=== PATIENT | female | born 1980 | race African-American/Black ===

== ENCOUNTER 2017-10-24 12:39 | Emergency (ER) | payer OTHER | END 2017-10-24 13:29 | disposition left against medical advice (07) | LOC: ERS 12:39 | DX: Z53.21 Procedure and treatment not carried out due to patient leaving prior to being seen by health care provider (principal) ==

== ENCOUNTER 2017-11-06 19:45 | Emergency (ER) | payer OTHER ==
[2017-11-06] MEDS ORDERED: traMADol HCl 50 MG TAB ONE (21:57)
--- NOTE | 2017-11-06 22:03 | RAD ---
FOUR VIEWS RIGHT KNEE 11/06/17 HISTORY: Right knee pain for three weeks. FINDINGS: There is no evidence of a fracture, dislocation, or other osseous abnormality involving the right kne e. IMPRESSION: No acute osseous abnormality. POS: JOSE
== END 2017-11-06 22:03 | disposition home or self-care (01) ==
LOC: ERS 19:45
DX: S83.91XA Sprain of unspecified site of right knee, initial encounter (principal); D57.1 Sickle-cell disease without crisis; F32.9 Major depressive disorder, single episode, unspecified; Z79.899 Other long term (current) drug therapy; X50.0XXA Overexertion from strenuous movement or load, initial encounter; Y93.39 Activity, other involving climbing, rappelling and jumping off

== ENCOUNTER 2018-02-14 05:44 | Emergency (ER) | payer OTHER ==
[2018-02-14] MEDS ORDERED: Acetaminophen 325 MG TAB ONE (06:40)
[2018-02-14 06:58] LABS: #Eosinphils 0.1 thou/uL (0.0-0.7); #Lymphocytes 1.3 thou/uL (1.20-3.40); #Monocytes 0.3 thou/uL (0.11-0.59); #Neutrophils 1.9 thou/uL (1.40-6.50); %Basophils 1.2 % (0.0-1.0); %Eosinophils 2.6 % (0.0-10.0); %Lymphocytes 36.2 % (21.0-51.0); %Monocytes 6.9 % (0.0-10.0); %Neutrophils 53.1 % (42.0-75.0); Hemoglobin 12.2 g/dL (12.0-16.0); Mean Corpuscular HGB CONC 34.1 g/dL (32.0-36.0); Mean Corpuscular Hemoglobin 30.5 pg (27.0-31.0); Mean Corpuscular Volume 89.4 fl (81.0-99.0); Mean Platelet Volume 7.4 fL (7.4-10.4); Platelet Count 258 thou/uL (130-400); RBC Distribution Width 12.2 % (11.5-14.5); Red Blood Cell (RBC) Count 4.01 mill/uL (4.20-5.40); White Blood Cell (WBC) Count 3.6 thou/uL (4.8-10.8)
[2018-02-14 07:15] LABS: ALT (SGPT) Less than 7 U/L (8-55); AST (SGOT) 12 U/L (5-34); Albumin 3.6 g/dL (3.5-5.0); Alkaline Phosphatase 44 U/L (40-150); Anion Gap 9 mmol/L (10-20); BUN (Urea Nitrogen) 7 mg/dL (7.0-18.7); Bilirubin, Total 0.7 mg/dL (0.2-1.2); Calc. Creatinine Clearance 0 mL/min (70-130); Calcium 8.8 mg/dL (7.8-10.44); Carbon Dioxide 25 mmol/L (22-29); Chloride 106 mmol/L (98-107); Estimated GFR-MDRD Greater than 90; Globulin 3.3 g/dL (2.4-3.5); Glucose 94 mg/dL (70-105); Potassium 3.9 mmol/L (3.5-5.1); Protein, Total 6.9 g/dL (6.0-8.3); Sodium 136 mmol/L (136-145)
[2018-02-14 07:38] LABS: Bilirubin Negative (Negative); Blood, Urine Negative (Negative); Clarity CLOUDY (Clear); Glucose, Urine (Dipstick) Negative (Negative); Leukocyte Moderate (Negative); Nitrite Negative (Negative); Protein, Urine (Dipstick) Negative (Neg-Trace); Specific Gravity, Urine 1.016 (1.002-1.036)
[2018-02-14 07:40] LABS: Hyaline Casts/LPF 0-3 HYALINE CAST LPF (0-3 Hyaline); Pathc Cast-AUWi Flag 0.14 (0-2.49); WBC/HPF 21-50 HPF (0-3)
[2018-02-14 07:45] LABS: Pregnancy Test - Urine (BHCG) Negative (Negative); Pregu Control Background? CLEAR/WHITE (CLR/WHITE); Pregu Control Bar Appear? YES (CONTROL BAR); Specific Gravity 1.016 (1.002-1.036)
--- NOTE | 2018-02-14 08:00 | ULT ---
SONOGRAM VENOUS DUPLEX RIGHT UPPER EXTREMITY: HISTORY: Right arm pain and edema. FINDINGS: The right internal jugular and subclavian veins were evaluated along with the axillary, brachial, cep halic, and basilic veins. Good color and spectral Doppler flow. IMPRESSION: No sonographic evidence of deep vein thrombosis right upper extremity. POS: YESENIA
[2018-02-14 08:09] LABS: RBC/HPF 0-3 HPF (0-3)
[2018-02-14 08:10] LABS: Bacteria/HPF Rare-Few HPF (None Seen)
--- NOTE | 2018-02-14 08:43 | RAD ---
RIGHT HUMERUS TWO VIEWS: History: Fracture. Pain. Comparison: None. FINDINGS: No fracture. No cortical irregularity. No periosteal reaction. There is a focal outgrowth along the m edial distal humerus likely representing an ricky spur. IMPRESSION: 1. No acute fracture. 2. Probable ricky spur. MRI is recommended if there is concern for entrapment of the ulnar nerve. Code T POS: JOSE
== END 2018-02-14 08:36 | disposition home or self-care (01) ==
LOC: ERS 05:44
DX: M77.9 Enthesopathy, unspecified (principal); D72.819 Decreased white blood cell count, unspecified; N39.0 Urinary tract infection, site not specified; R79.1 Abnormal coagulation profile; D64.9 Anemia, unspecified; F32.9 Major depressive disorder, single episode, unspecified; M79.89 Other specified soft tissue disorders; D57.3 Sickle-cell trait
CPT/HCPCS: 36415; 80053; 81003; 81015; 81025; 85025; 85379; 87086

== ENCOUNTER 2018-03-30 11:38 | Emergency (ER) | payer OTHER ==
[2018-03-30] MEDS ORDERED: Ketorolac Tromethamine 60 MG/2 ML VIAL ONE (12:24)
--- NOTE | 2018-03-30 12:40 | RAD ---
LUMBAR SPINE RADIOGRAPH SERIES 3 VIEWS: INDICATION: Low back injury, pain. FINDINGS: There is maintained vertebral body height and disk space height of the lumbar spine. No significant subluxation. There is facet sclerosis. IMPRESSION: No acute osseous abnormality of the lumbar spine. POS: JOSE
--- NOTE | 2018-03-30 12:41 | RAD ---
THORACIC SPINE RADIOGRAPH 3 VIEW SERIES: INDICATION: Back injury, pain. FINDINGS: There is mild end plate degenerative change of the thoracic spine without evidence of compression fra cture or subluxation. IMPRESSION: No acute osseous abnormality of the thoracic spine identified. POS: JOSE
== END 2018-03-30 13:02 | disposition home or self-care (01) ==
LOC: ERS 11:38
DX: S39.012A Strain of muscle, fascia and tendon of lower back, initial encounter (principal); D64.9 Anemia, unspecified; F32.9 Major depressive disorder, single episode, unspecified; V43.52XA Car driver injured in collision with other type car in traffic accident, initial encounter
CPT/HCPCS: 72072; 72100; 96372; J1885

== ENCOUNTER 2019-04-23 09:45 | Emergency (ER) | payer OTHER, SELFPAY ==
[2019-04-23] MEDS ORDERED: Ketorolac Tromethamine 30 MG/ML VIAL ONE (10:27)
[2019-04-23] MEDS ORDERED: methylPREDNISolone Sod Succ/PF 125 MG/2 ML VIAL ONE (10:27)
[2019-04-23] MEDS ORDERED: diphenhydrAMINE 50 MG/ML VIAL ONE (10:27)
[2019-04-23] MEDS ORDERED: Metoclopramide HCl 10 MG/2 ML VIAL ONE (10:27)
== END 2019-04-23 13:44 | disposition home or self-care (01) ==
LOC: ERS 09:45
DX: R51 Headache (principal); D64.9 Anemia, unspecified; F32.9 Major depressive disorder, single episode, unspecified; F41.0 Panic disorder [episodic paroxysmal anxiety]
CPT/HCPCS: 96361; 96365; 96375; J1200; J1885; J2765; J2930

== ENCOUNTER 2019-09-03 20:13 | Emergency (ER) | payer SELFPAY | END 2019-09-03 21:37 | disposition left against medical advice (07) | LOC: ERS 20:13 | DX: Z53.21 Procedure and treatment not carried out due to patient leaving prior to being seen by health care provider (principal) ==

== ENCOUNTER 2020-09-26 07:58 | Emergency (ER) | payer MEDICAID, OTHER ==
[2020-09-26 09:33] LABS: Bacteria/HPF 3+ HPF (None Seen); Bilirubin Negative (Negative); Blood, Urine 1+ (Negative); Clarity Turbid (Clear); Glucose, Urine (Dipstick) Normal (Negative); Ketone, Urine Negative (Negative); Leukocyte 500 Leu/uL (Negative); Nitrite Negative (Negative); Protein, Urine (Dipstick) 30 mg/dL (Neg-Trace); Specific Gravity, Urine 1.014 (1.002-1.036); Squamous Epithelial 0-3 HPF (0-3); Urobilinogen 3 mg/dL (Less than 2); WBC/HPF Greater than 50 HPF (0-3); pH, Urine 6.5 (5.0-9.0)
[2020-09-26 13:07] LABS: SARS-CoV-2 MS2 Positive; SARS-CoV-2 N Gene Negative; SARS-CoV-2 S Gene Negative; SARS-CoV-2 by NAA Not Detected (NotDetected); SARS-CoV-2 orf1ab Negative
== END 2020-09-26 09:46 | disposition home or self-care (01) ==
LOC: ERS 07:58
DX: N39.0 Urinary tract infection, site not specified (principal); Z20.822 Contact with and (suspected) exposure to COVID-19
CPT/HCPCS: 81003; 81015; 87635; 99284; U0003

== ENCOUNTER 2021-02-04 20:15 | Emergency (ER) | payer OTHER ==
[2021-02-04] MEDS ORDERED: Bacitracin 1 PK ONE (22:10)
[2021-02-04] MEDS ORDERED: Boostrix 0.5 ML (Tdap) VIAL ONE (22:12)
[2021-02-04] MEDS ORDERED: Ibuprofen 200 MG TAB ONE (23:21)
== END 2021-02-04 22:36 | disposition home or self-care (01) ==
LOC: ERS 20:15
DX: S61.302A Unspecified open wound of right middle finger with damage to nail, initial encounter (principal); F17.210 Nicotine dependence, cigarettes, uncomplicated; X58.XXXA Exposure to other specified factors, initial encounter
CPT/HCPCS: 90471; 90715

== ENCOUNTER 2021-06-25 07:38 | Emergency (ER) | payer OTHER | END 2021-06-25 08:28 | disposition home or self-care (01) | LOC: ERS 07:38 | DX: H66.92 Otitis media, unspecified, left ear (principal); F17.210 Nicotine dependence, cigarettes, uncomplicated | CPT/HCPCS: 99282 ==

== ENCOUNTER 2021-07-14 14:40 | Emergency (ER) | payer OTHER ==
[2021-07-14] MEDS ORDERED: Acetaminophen 500 MG TAB ONE (16:18)
[2021-07-14] MEDS ORDERED: Ketorolac Tromethamine 30 MG/ML VIAL ONE (16:18)
[2021-07-14 16:54] LABS: #Eosinphils 0.1 thou/uL (0.0-0.7); #Lymphocytes 1.6 thou/uL (1.20-3.40); #Monocytes 0.6 thou/uL (0.11-0.59); #Neutrophils 2.3 thou/uL (1.40-6.50); %Basophils 0.9 % (0.0-1.0); %Eosinophils 1.2 % (0.0-10.0); %Monocytes 12.2 % (0.0-10.0); %Neutrophils 50.7 % (42.0-75.0); Hemoglobin 12.7 g/dL (12.0-16.0); Mean Corpuscular HGB CONC 34.2 g/dL (32.0-36.0); Mean Corpuscular Hemoglobin 30.8 pg (27.0-31.0); Mean Platelet Volume 8.1 fL (7.4-10.4); Platelet Count 263 thou/uL (130-400); RBC Distribution Width 12.3 % (11.5-14.5); Red Blood Cell (RBC) Count 4.12 mill/uL (4.20-5.40); White Blood Cell (WBC) Count 4.5 thou/uL (4.8-10.8)
[2021-07-14 17:14] LABS: Troponin I Less than 0.010 ng/mL (< 0.028)
[2021-07-14 17:15] LABS: ALT (SGPT) 23 U/L (8-55); AST (SGOT) 26 U/L (5-34); Albumin 3.6 g/dL (3.5-5.0); Alkaline Phosphatase 44 U/L (40-110); Anion Gap 8 mmol/L (10-20); BUN (Urea Nitrogen) 13 mg/dL (7.0-18.7); Bilirubin, Total 0.4 mg/dL (0.2-1.2); Calc. Creatinine Clearance 0 mL/min (70-130); Calcium 9.1 mg/dL (7.8-10.44); Carbon Dioxide 30 mmol/L (22-29); Chloride 105 mmol/L (98-107); Globulin 3.3 g/dL (2.4-3.5); Glucose 97 mg/dL (70-105); Potassium 3.8 mmol/L (3.5-5.1); Protein, Total 6.9 g/dL (6.0-8.3); Sodium 139 mmol/L (136-145)
[2021-07-14 21:16] LABS: SARS-CoV-2 PCR by NAA Not Detected (NotDetected)
== END 2021-07-14 17:50 | disposition home or self-care (01) ==
LOC: ERS 14:40
DX: B34.9 Viral infection, unspecified (principal); I10 Essential (primary) hypertension; D64.9 Anemia, unspecified; Z20.822 Contact with and (suspected) exposure to COVID-19; F17.210 Nicotine dependence, cigarettes, uncomplicated; Z79.899 Other long term (current) drug therapy
CPT/HCPCS: 36415; 71045; 80053; 84484; 85025; 93005; 96372; J1885; U0003; U0005

== ENCOUNTER 2021-09-26 17:48 | Emergency (ER) | payer OTHER ==
[2021-09-26] MEDS ORDERED: Ketorolac Tromethamine 30 MG/ML VIAL ONE (19:43)
== END 2021-09-26 20:05 | disposition home or self-care (01) ==
LOC: ERS 17:48
DX: M25.561 Pain in right knee (principal); D64.9 Anemia, unspecified; F17.210 Nicotine dependence, cigarettes, uncomplicated
CPT/HCPCS: 96372; J1885

== ENCOUNTER 2022-07-10 18:35 | Emergency (ER) | payer OTHER | END 2022-07-10 21:48 | LOC: ERS 18:35 | DX: Z53.21 Procedure and treatment not carried out due to patient leaving prior to being seen by health care provider (principal) ==

== ENCOUNTER 2022-08-10 06:35 | Emergency (ER) | payer OTHER ==
[2022-08-10 07:50] LABS: #Eosinphils 0.1 thou/uL (0.0-0.7); #Lymphocytes 1.3 thou/uL (1.20-3.40); #Monocytes 0.3 thou/uL (0.11-0.59); #Neutrophils 2.2 thou/uL (1.40-6.50); %Basophils 1.1 % (0.0-1.0); %Eosinophils 1.7 % (0.0-10.0); %Lymphocytes 32.2 % (21.0-51.0); %Monocytes 8.5 % (0.0-10.0); %Neutrophils 56.4 % (42.0-75.0); Hemoglobin 13.6 g/dL (12.0-16.0); Mean Corpuscular HGB CONC 34.4 g/dL (32.0-36.0); Mean Corpuscular Hemoglobin 31.5 pg (27.0-31.0); Mean Corpuscular Volume 91.4 fl (78.0-98.0); Mean Platelet Volume 6.9 fL (7.4-10.4); Platelet Count 319 10x3/uL (130-400); RBC Distribution Width 12.2 % (11.5-14.5); Red Blood Cell (RBC) Count 4.32 mill/uL (4.20-5.40)
[2022-08-10 07:55] LABS: ALT (SGPT) 14 U/L (8-55); AST (SGOT) 18 U/L (5-34); Alkaline Phosphatase 56 U/L (40-110); Anion Gap 13 mmol/L (10-20); BUN (Urea Nitrogen) 9 mg/dL (7.0-18.7); Bilirubin, Total 1.1 mg/dL (0.2-1.2); Calc. Creatinine Clearance 0 mL/min (70-130); Calcium 9.8 mg/dL (7.8-10.44); Carbon Dioxide 24 mmol/L (22-29); Chloride 104 mmol/L (98-107); Estimated GFR 87; Globulin 4.1 g/dL (2.4-3.5); Glucose 101 mg/dL (70-105); Lipase 16 U/L (8-78); Potassium 3.6 mmol/L (3.5-5.1); Protein, Total 8.1 g/dL (6.0-8.3); Sodium 137 mmol/L (136-145)
[2022-08-10] MEDS ORDERED: Ketorolac Tromethamine 30 MG/ML VIAL ONE (08:14)
== END 2022-08-10 08:40 | disposition home or self-care (01) ==
LOC: ERS 06:35
DX: M79.602 Pain in left arm (principal)
CPT/HCPCS: 36415; 71045; 80053; 83690; 84484; 85025; 93005; 96372; J1885

== ENCOUNTER 2022-10-13 07:48 | Emergency (ER) | payer OTHER ==
[2022-10-13 09:02] LABS: Bacteria/HPF None Seen HPF (None Seen); Bilirubin Negative (Negative); Blood, Urine Negative (Negative); Clarity Clear (Clear); Glucose, Urine (Dipstick) Normal (Negative); Ketone, Urine 10 mg/dL (Negative); Leukocyte 25 Leu/uL (Negative); Nitrite Negative (Negative); Protein, Urine (Dipstick) Negative (Neg-Trace); Specific Gravity, Urine 1.016 (1.002-1.036); pH, Urine 6.5 (5.0-9.0)
[2022-10-13] MEDS ORDERED: Ondansetron PF 4 MG/2 ML Vial ONE (09:06)
[2022-10-13 09:12] LABS: Hemoglobin 12.2 g/dL (12.0-16.0); Mean Corpuscular Hemoglobin 30.6 pg (27.0-31.0); Mean Corpuscular Volume 90.1 fl (78.0-98.0); RBC Distribution Width 12.5 % (11.5-14.5); Red Blood Cell (RBC) Count 3.99 mill/uL (4.20-5.40)
[2022-10-13 09:38] LABS: Eosinophils 2 % (0-10); Lymphocytes 38 % (21-51); MDiff Complete? YES; Mean Platelet Volume 8.5 fL (7.4-10.4); Monocytes 8 % (0-10); Neutrophil 52 % (42-75); Platelet Count 254 10x3/uL (130-400); Platelet Morphology Comment Appears Adequate; White Blood Cell (WBC) Count 2.2 10x3/uL (4.8-10.8)
[2022-10-13 09:39] LABS: ALT (SGPT) 11 U/L (8-55); AST (SGOT) 18 U/L (5-34); Albumin 3.6 g/dL (3.5-5.0); Alkaline Phosphatase 43 U/L (40-110); Anion Gap 15 mmol/L (10-20); BUN (Urea Nitrogen) 5 mg/dL (7.0-18.7); Calc. Creatinine Clearance 0 mL/min (70-130); Calcium 9.1 mg/dL (7.8-10.44); Carbon Dioxide 24 mmol/L (22-29); Chloride 101 mmol/L (98-107); Estimated GFR 101; Globulin 3.2 g/dL (2.4-3.5); Glucose 91 mg/dL (70-105); Lipase 54 U/L (8-78); Potassium 3.3 mmol/L (3.5-5.1); Protein, Total 6.8 g/dL (6.0-8.3); Sodium 137 mmol/L (136-145)
[2022-10-13 13:13] LABS: Pregnancy Test - Urine (BHCG) Negative (Negative); Pregu Control Background? CLEAR/WHITE (CLR/WHITE); Pregu Control Bar Appear? YES (CONTROL BAR); Specific Gravity 1.016 (1.002-1.036)
== END 2022-10-13 14:03 | disposition home or self-care (01) ==
LOC: ERS 07:48
DX: R11.2 Nausea with vomiting, unspecified (principal); N76.6 Ulceration of vulva; D72.819 Decreased white blood cell count, unspecified; Z20.822 Contact with and (suspected) exposure to COVID-19
CPT/HCPCS: 36415; 80053; 81003; 81015; 81025; 83690; 85025; 96361; 96374; J2405; U0003; U0005

== ENCOUNTER 2022-10-24 06:44 | Emergency (ER) | payer OTHER ==
[2022-10-24] MEDS ORDERED: Ketorolac Tromethamine 30 MG/ML VIAL ONE (07:50)
== END 2022-10-24 08:36 | disposition home or self-care (01) ==
LOC: ERS 06:44
DX: M79.672 Pain in left foot (principal); M25.552 Pain in left hip; M25.512 Pain in left shoulder; W10.9XXA Fall (on) (from) unspecified stairs and steps, initial encounter
CPT/HCPCS: 70450; 72125; 72170; 96372; J1885

== ENCOUNTER 2023-01-14 05:47 | Emergency (ER) | payer OTHER ==
[2023-01-14 06:23] LABS: #Eosinphils 0.1 thou/uL (0.0-0.7); #Lymphocytes 1.5 thou/uL (1.20-3.40); #Monocytes 0.2 thou/uL (0.11-0.59); #Neutrophils 1.6 thou/uL (1.40-6.50); %Basophils 1.1 % (0.0-1.0); %Eosinophils 1.8 % (0.0-10.0); %Lymphocytes 43.5 % (21.0-51.0); %Monocytes 7.1 % (0.0-10.0); %Neutrophils 46.5 % (42.0-75.0); Mean Corpuscular HGB CONC 34.2 g/dL (32.0-36.0); Mean Corpuscular Hemoglobin 31.1 pg (27.0-31.0); Mean Corpuscular Volume 90.9 fl (78.0-98.0); Mean Platelet Volume 8.7 fL (7.4-10.4); Platelet Count 236 10x3/uL (130-400); RBC Distribution Width 12.8 % (11.5-14.5); Red Blood Cell (RBC) Count 3.87 mill/uL (4.20-5.40); White Blood Cell (WBC) Count 3.4 10x3/uL (4.8-10.8)
[2023-01-14 06:44] LABS: ALT (SGPT) 9 U/L (8-55); AST (SGOT) 19 U/L (5-34); Albumin 3.6 g/dL (3.5-5.0); Alkaline Phosphatase 36 U/L (40-110); Anion Gap 14 mmol/L (10-20); BUN (Urea Nitrogen) 5 mg/dL (7.0-18.7); Calc. Creatinine Clearance 0 mL/min (70-130); Calcium 9.6 mg/dL (7.8-10.44); Carbon Dioxide 24 mmol/L (22-29); Chloride 104 mmol/L (98-107); Estimated GFR 95; Globulin 3.5 g/dL (2.4-3.5); Glucose 99 mg/dL (70-105); Potassium 2.8 mmol/L (3.5-5.1); Protein, Total 7.1 g/dL (6.0-8.3); Sodium 139 mmol/L (136-145)
[2023-01-14] MEDS ORDERED: Potassium Chloride 20 MEQ TAB ONE (09:28)
== END 2023-01-14 09:51 | disposition home or self-care (01) ==
LOC: ERS 05:47
DX: E87.6 Hypokalemia (principal)
CPT/HCPCS: 36415; 80053; 85025; 93005

== ENCOUNTER 2023-07-22 06:16 | Emergency (ER) | payer OTHER ==
[2023-07-22] MEDS ORDERED: Dexamethasone 10 MG/ML VIAL ONE (06:39)
== END 2023-07-22 06:55 | disposition home or self-care (01) ==
LOC: ERS 06:16
DX: M79.602 Pain in left arm (principal); M79.601 Pain in right arm
CPT/HCPCS: 96372; 99283; J1100

== ENCOUNTER 2023-11-13 20:51 | Emergency (ER) | payer BC, OTHER ==
[~2023-11-13 20:51] MED LIST: Iopamidol-370 76% 500 ML MDV (1 ML CHARGE) ONE
[2023-11-13 21:31] LABS: Bacteria/HPF None Seen HPF (None Seen); Bilirubin Negative (Negative); Blood, Urine Negative (Negative); CAUTI Indications for Culture Dysuria,urgency,freq; Clarity Clear (Clear); Glucose, Urine (Dipstick) Normal (Negative); Ketone, Urine Negative (Negative); Leukocyte Negative Leu/uL (Negative); Nitrite Negative (Negative); Pregnancy Test - Urine (BHCG) Negative (Negative); Pregu Control Background? CLEAR/WHITE (CLR/WHITE); Pregu Control Bar Appear? YES (CONTROL BAR); Protein, Urine (Dipstick) Negative (Neg-Trace); RBC/HPF 0-3 HPF (0-3); Specific Gravity 1.016 (1.002-1.036); Specific Gravity, Urine 1.016 (1.002-1.036); Squamous Epithelial 0-3 HPF (0-3); Urobilinogen Normal mg/dL (Less than 2); WBC/HPF 0-3 HPF (0-3)
[2023-11-13 21:33] LABS: Urine Culture Reflex No No
[2023-11-13] MEDS ORDERED: Ketorolac Tromethamine 30 MG (1 mL) VIAL ONE (22:00)
[2023-11-13 22:19] LABS: #Monocytes 0.3 thou/uL (0.11-0.59); #Neutrophils 1.1 thou/uL (1.40-6.50); %Basophils 0.3 % (0.0-1.0); %Lymphocytes 50.2 % (21.0-51.0); %Monocytes 10.2 % (0.0-10.0); %Neutrophils 38.3 % (42.0-75.0); Hematocrit 32.1 % (36.0-47.0); Hemoglobin 11.3 g/dL (12.0-16.0); Mean Corpuscular HGB CONC 35.2 g/dL (32.0-36.0); Mean Corpuscular Hemoglobin 32.2 pg (27.0-31.0); Mean Corpuscular Volume 91.5 fl (78.0-98.0); Mean Platelet Volume 10.4 fL (7.4-10.4); Platelet Count 217 10x3/uL (130-400); Red Blood Cell (RBC) Count 3.51 mill/uL (4.20-5.40)
[2023-11-13 22:47] LABS: ALT (SGPT) 7 U/L (8-55); AST (SGOT) 14 U/L (5-34); Albumin 3.3 g/dL (3.5-5.0); Alkaline Phosphatase 33 U/L (40-110); Anion Gap 7 mmol/L (10-20); BUN (Urea Nitrogen) 9 mg/dL (7.0-18.7); Bilirubin, Total 0.6 mg/dL (0.2-1.2); Calc. Creatinine Clearance 0 mL/min (70-130); Calcium 8.7 mg/dL (7.8-10.44); Carbon Dioxide 26 mmol/L (22-29); Chloride 109 mmol/L (98-107); Estimated GFR 102; Globulin 2.9 g/dL (2.4-3.5); Glucose 88 mg/dL (70-105); Lipase 28 U/L (8-78); Potassium 3.8 mmol/L (3.5-5.1); Protein, Total 6.2 g/dL (6.0-8.3); Sodium 138 mmol/L (136-145)
== END 2023-11-14 01:05 | disposition home or self-care (01) ==
LOC: ERS 20:51
DX: M54.50 Low back pain, unspecified (principal); A09 Infectious gastroenteritis and colitis, unspecified
CPT/HCPCS: 36415; 74177; 80053; 81001; 81025; 83690; 85025; 96374; J1885; Q9967

== ENCOUNTER 2025-06-12 07:28 | Emergency (ER) | payer BC, SELFPAY ==
[2025-06-12] MEDS ORDERED: Ketorolac Tromethamine 30 MG (1 mL) VIAL ONE (08:40)
== END 2025-06-12 08:57 | disposition home or self-care (01) ==
LOC: ERS 07:28
DX: S83.91XA Sprain of unspecified site of right knee, initial encounter (principal); X50.0XXA Overexertion from strenuous movement or load, initial encounter
CPT/HCPCS: 96372; 99283; J1885